=== PATIENT | female | born 1965 | race Caucasian/White ===

== ENCOUNTER → 2017-07-11 | Outpatient (CLI) | payer MEDICAID ==
[2013-12-04 10:12] VITALS: BMI 19.9
[~2017-07-11] MED LIST: ACE500 PO; ADV250/50 INH; ALBUTEROL INHAL; AMIT100T53 PO; AMOX-362 PO; ANTI15DR29 OT; ARIP5TAB28 PO; AUG500 PO; AUGMENTIN; AZI250 PO; BACDS PO; CARB-83 PO; CEP500 PO; CEPH-13 PO; CLAD PO; CLON-308 PO; CLON-388 PO; CLON1 PO; DEXT10SY2 PO; EAR DROPS; ESTR42.5 VG; FERR325T3 PO; FLUC150T40 PO; FLUO-177 PO; FLUT16SP20 NS; GAB100 PO; HYDR-4309 PO; HYDR25CA83 PO; LEV500 PO; LEVO250T37 PO; LOR10 PO; LOR5 PO; LOR5/325 PO; LOR75 PO; LORA10TA2 PO; META800T18 PO; METH-632 PO; METH20CP PO; METH40TA13 PO; METH4TAB57 PO; MIRT15TA6 PO; MOMR NS; MORS15 PO; NALT50TA15 PO; NAS20R NS; NIC21T TD; OND4 PO; ONDA4TAB PO; OXY10 PO; OXYC-823 PO; OXYC-865 PO; OXYC5TAB38 PO; OXYC5TAB65 PO; PANT40TA13 PO; PEN250 PO; PER PO; PRE20 PO; PROM25S PR; QUET25TA30 PO; RIZA10 PO; RIZA10TA22 PO; RIZA5TAB13 PO; SUDAFED; THI100 PO; TIZ4 PO; TIZA2CAP3 PO; TIZA4CAP6 PO; TOPI50TA92 PO; TRA50 PO; TYLENOL; VICODIN PO; [UNRECOGNIZED DRUG - CODE] TOP
== END ==
LOC: LAB 11:14
PROVIDERS: ATTEND Obstetrics & Gynecology
DX: R19.7 Diarrhea, unspecified (principal)
CPT/HCPCS: 87177

== ENCOUNTER → 2017-10-31 | Outpatient (CLI) | payer MEDICAID ==
[2013-12-04 10:12] VITALS: BMI 19.9
[~2017-10-31] MED LIST changes: +ATOR20TA65 PO; +BARIUM SULFATE 176 GM BTL PO ONE; +BARIUM SULFATE 340 GM POWD ONE; -CLON-308 PO; +CLON-335 PO; +IOPAMIDOL 76% 100 ML INFUS BTL 100 ML ONE; +LIDOCAINE/SOD BICARB 8.4% SYR ID ONE; +METF-411 PO; +METH20TA37 PO; +PANT40TA65 PO; +TRAZ100T31 PO; +TRAZ50TA34 PO
--- NOTE | 2017-10-31 10:04 | RADIOLOGY IMAGING REPORT ---
FACILITY: [facility] [place] PATIENT NAME: Ayse Treviño : 1965 MR: [id number] V: [id number] EXAM DATE: ORDERING PHYSICIAN: PIYUSH DUVALL TECHNOLOGIST: Location: [facility] Patient: Ayse Treviño : 1965 Visit/Account:[id number] Date of Sevice: 10/31/2017 ABDOMEN/PELVIS WITH CONTRAST HISTORY: Nausea, epigastric pain TECHNIQUE: Following administration of IV contrast contiguous axial images acquired through the abdom en/pelvis. Coronal and sagittal reformatting also performed. Dose Lowering Technique One of the following dose optimization techniques was utilized in the performance of this exam: Autom ated exposure control; adjustment of the mA and/or kV according to the patient's size; or use of an i terative reconstruction technique. Specific details can be referenced in the facility's radiology C T exam operational policy. CONTRAST: 75 mL Isovue-370 COMPARISON: CT abdomen pelvis October 22, 2013 FINDINGS: Visualized lung bases: Negative. Hepatobiliary: There are postsurgical changes from a cholecystectomy. A small capsular calcificatio ns seen along the medial dome of the liver that appears stable Spleen: Negative. Adrenals: Negative. Pancreas: Negative. Kidneys ureters or bladder: Negative. Genitalia: Postsurgical changes from hysterectomy GI: Again noted are postoperative changes from a gastric bypass. The previously noted 3.2 x 2.8 x 3 .6 cm hypoattenuating structure immediately adjacent to the gastric clips is slightly increased in si ze now measuring 4.2 x 2.8 x 4 cm. This likely postoperative and does not appear to represent an abs cess. There is no internal air bubbles in the wall appears thin . The distal wall the esophagus appears mildly thickened Vessels/spaces/nodes: Very mild vascular calcifications.. Bones/soft tissues: There are postsurgical changes from ventral hernia repair with mesh placement that appears similar to the prior study Additional findings: None pertinent. IMPRESSION: There are postsurgical changes from a cholecystectomy, hysterectomy ventral hernia repair with mesh a nd gastric bypass. There is a 4.2 x 2.8 x 4 cm hypoattenuating structure immediately adjacent to the gastric clips sligh tly increased in size when compared the prior study and is likely postoperative in nature. This does not appear to represent an abscess Distal esophagus appears mildly thickened. Clinical correlation needed Report Dictated By: Sadie Apodaca MD at 10/31/2017 9:44 AM Report E-Signed By: Sadie Apodaca MD at 10/31/2017 10:00 AM PAMELAN:[id number]
--- NOTE | 2017-10-31 16:03 | RADIOLOGY IMAGING REPORT ---
FACILITY: [facility] [place] PATIENT NAME: Ayse Treviño : 1965 MR: [id number] V: [id number] EXAM DATE: ORDERING PHYSICIAN: PIYUSH DUVALL TECHNOLOGIST: Location: [facility] Patient: Ayse Treviño : 1965 Visit/Account:[id number] Date of Sevice: 10/31/2017 Exam type: UPPER GI W/SMALL BOWEL SERIES History: Diarrhea, weight gain, gastric bypass surgery 17 years ago Comparison: None. Findings: Double contrast upper GI series and small bowel follow-through was performed with thick and thin lesley um. The patient did not receive air-contrast as she was instructed not to drink effervescent or carb onated liquids. There is a small hiatal hernia although no evidence of esophageal narrowing or mucosal erosion. There are postsurgical changes from a Jasmin-en-Y gastric bypass. The anastomosis from the gastric gracy ch into the Jasmin limb was widely patent. Small amount of barium refluxed into the jejunal stump. Th ere is no evidence of an anastomotic leak or stricture. The barium did not reflux into the biliopanc reatic limb lowering to the isolated stomach. The barium passed rapidly into the right-sided the col on reaching the right-sided colon on the 15 minute image.. There is irregular thickening of the small bowel folds in the proximal portion of the Jasmin limb The possibly dose area product was 1128.3 micro-Aleman per meter squared IMPRESSION: 1. Small hiatal hernia although no evidence of esophageal narrowing or mucosal erosion Postsurgical changes from a Jasmin-en-Y gastric bypass. The gastric anastomosis is widely patent witho ut evidence of stricture or anastomotic leak. Barium did flow rapidly to the right-sided the colon which was visualized on the 15 minute image. There is irregular thickening of the small bowel folds in the proximal portion of the Jasmin limb diffe rential diagnosis for this finding would include hypoalbuminemia, infection, inflammatory change. Report Dictated By: Sadie Apodaca MD at 10/31/2017 3:22 PM Report E-Signed By: Sadie Apodaca MD at 10/31/2017 3:58 PM WSN:[id number]
== END ==
LOC: CT 02:23
PROVIDERS: ATTEND Surgery
DX: K44.9 Diaphragmatic hernia without obstruction or gangrene (principal)
CPT/HCPCS: 74177; 74245; Q9967

== ENCOUNTER 2017-11-07 00:37 | Day surgery (SDC) | payer MEDICAID ==
[2013-12-04 10:12] VITALS: Ht 167.6 cm; Wt 76.7 kg
[~2017-11-07] VITALS: Ht 167.6 cm; Wt 76.7 kg
[~2017-11-07 00:37] MED LIST changes: -BARIUM SULFATE 176 GM BTL PO ONE; -BARIUM SULFATE 340 GM POWD ONE; -IOPAMIDOL 76% 100 ML INFUS BTL 100 ML ONE; -LIDOCAINE/SOD BICARB 8.4% SYR ID ONE
[2017-11-07] MEDS ORDERED: PROPOFOL EMUL(*) 10MG/ML 20 ML 20 ML ONE ×4 (07:09→10:32)
[2017-11-07 07:48] LABS: PLATELET COUNT, AUTOMATED 407 K/uL (150-450)
[2017-11-07] MEDS ORDERED: LIDOCAINE/SOD BICARB 8.4% SYR ID ONE (07:55)
[2017-11-07] MEDS ORDERED: NORMOSOL R SOLN(*) 1000 ML BAG 1,000 ML IV PRN (07:55)
[2017-11-07 07:58] VITALS: BP 125/83
[2017-11-07 10:40] VITALS: BP 116/77
[2017-11-07 10:45] VITALS: BP 118/74
--- NOTE | 2017-11-07 10:57 | Short(Outpt) Discharge Summary ---
Discharge Summary Reason for Hosp/Final Diag: (1) Epigastric abdominal pain Status: Chronic Hospital Course & Plan: EGD with biopsies and colonoscopy with biopsies and polypectomy x4 completed without problems. (2) Diarrhea Status: Chronic Departure Discharge to: Home, Self Care Discharge Instructions Home Meds Active Scripts Pantoprazole Sodium (PANTOPRAZOLE SODIUM) 40 Mg Tablet.dr, 1 TAB PO DAILY, #30 TAB 0 Refills Take one tablet 1st thing every morning and wait 30 minutes before eating Prov:PIYUSH DUVALL MD 10/16/17 Reported Medications Methylphenidate Hcl (METHYLPHENIDATE HCL) 20 Mg Tablet, 20 MG PO BID for ADD 10/30/17 Trazodone Hcl (TRAZODONE HCL) 100 Mg Tablet, 200 MG PO QHS, TAB 10/30/17 Tizanidine Hcl (TIZANIDINE HCL) 2 Mg Capsule, 4 MG PO TID, CAPSULE 10/30/17 Atorvastatin Calcium (ATORVASTATIN CALCIUM) 20 Mg Tablet, 1 TAB PO QDAY, TAB 08/29/17 Ondansetron (ZOFRAN ODT) 4 Mg Tab.rapdis, 4 MG PO Q12H Y for NAUSEA/VOMITING, TAB.CHIVO 08/29/17 Metformin Hcl (METFORMIN HCL) 500 Mg Tablet, 1 TAB PO BID, TAB 08/29/17 Fluoxetine Hcl (FLUOXETINE HCL) 20 Mg Capsule, 60 MG PO QDAY, CAPSULE 01/13/17 Clonazepam (CLONAZEPAM) 0.5 Mg Tab.rapdis, 0.5 MG PO BID, TAB 01/13/17 Follow up Referrals: General Surgery - 12/03/17 @ Surgery, General with Piyush Duvall Md You have a follow up appointment scheduled with Dr. Duvall on 11/24/17, at 4:00pm. Diet: Regular Activity: As Tolerated Problem Qualifiers (1) Diarrhea: Diarrhea type: unspecified type Qualified Codes: R19.7 - Diarrhea, unspecified PIYUSH DUVALL MD Nov 07, 2017 10:57
[2017-11-07 11:00] VITALS: BP 129/72
[2017-11-07 11:15] VITALS: BP 122/80
[2017-11-07 11:17] VITALS: BP 113/71
== END 2017-11-07 11:40 | disposition home or self-care (01) ==
LOC: OR 00:37
PROVIDERS: ATTEND Surgery
DX: K22.70 Barrett's esophagus without dysplasia (principal); D12.3 Benign neoplasm of transverse colon; K63.5 Polyp of colon; K62.1 Rectal polyp; F41.8 Other specified anxiety disorders; G47.33 Obstructive sleep apnea (adult) (pediatric); E11.9 Type 2 diabetes mellitus without complications; M79.7 Fibromyalgia; F17.210 Nicotine dependence, cigarettes, uncomplicated; F12.90 Cannabis use, unspecified, uncomplicated; Z90.49 Acquired absence of other specified parts of digestive tract; Z98.84 Bariatric surgery status
CPT/HCPCS: 00811; 36415; 36416; 43239; 45380; 45385; 82248; 82948; 83516; 85025; 85651; 86140; 87077; 88305; J2704; 82040; 82247; 82310; 82374; 82435; 82565; 82947; 84075; 84132; 84155; 84295; 84450; 84460; 84520

== ENCOUNTER 2018-01-03 14:06 | Emergency (ER) | payer MEDICAID ==
[2013-12-04 10:12] VITALS: Wt 79.4 kg
[~2018-01-03 14:06] MED LIST changes: -HYDR-4309 PO; +HYDR-653 PO; -METF-411 PO; +METF-450 PO
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
[2018-01-03] MEDS ORDERED: diphenhydrAMINE 50 MG/ML VIAL IVP ONE (14:25)
[2018-01-03] MEDS ORDERED: PROMETHAZINE 25 MG/ML 1 ML AMP IVP ONE (14:25)
[2018-01-03] MEDS ORDERED: DEXAMETHASONE SOD PHOS 10MG/ML IVP ONE (14:25)
[2018-01-03] MEDS ORDERED: KETOROLAC 30 MG/ML VIAL IVP ONE (14:25)
[2018-01-03] MEDS ORDERED: NS(*) 0.9% 1000 ML BAG 1,000 ML IV ONE (14:25)
[2018-01-03] MEDS ORDERED: MORPHINE 4 MG/ML SDV IVP ONE (15:25)
[2018-01-03 15:30] VITALS: BP 108/72
[2018-01-08] MEDS ORDERED: PANT40TA65 PO (15:08)
== END 2018-01-03 16:15 | disposition home or self-care (01) ==
LOC: ER 14:09
DX: G43.919 Migraine, unspecified, intractable, without status migrainosus (principal)
CPT/HCPCS: 96361; 96374; 96375; 99284; J1100; J1200; J1885; J2270; J2550; J7030

== ENCOUNTER → 2018-02-21 | Outpatient (CLI) | payer MEDICAID ==
[2013-12-04 10:12] VITALS: BMI 19.9
--- NOTE | 2018-02-21 13:02 | RADIOLOGY IMAGING REPORT ---
FACILITY: [facility] PATIENT NAME: Ayse Treviño : 1965 MR: [id number] V: [id number] EXAM DATE: ORDERING PHYSICIAN: ANDRE SNELL TECHNOLOGIST: Location: [facility] Patient: Ayse Treviño : 1965 Visit/Account:[id number] Date of Sevice: 02/21/2018 T SPINE W/O CONTRAST COMPARISON: None Additional pertinent history: Thoracic pain Technique: Multiplanar multisequence thoracic spine MRI was performed without gadolinium enhancement. FINDINGS: Vertebral body height and alignment: Negative Marrow signal: Negative Vertebral bodies: Negative Thoracic spinal cord signal: Negative Disc spaces: Circumferential disc bulging with facet hypertrophic changes at T10-T11. Canal and neural foramina: Negative Surrounding soft tissues: Negative IMPRESSION: 1. Spondylitic change involving the lower thoracic spine. 2. No significant canal or neural foraminal narrowing. Report Dictated By: Bran Escalante MD at 02/21/2018 12:55 PM Report E-Signed By: Bran Escalante MD at 02/21/2018 12:57 PM WSN:[email or web address]
== END ==
LOC: MRI 00:35
PROVIDERS: ATTEND Nurse Practitioner
DX: M47.894 Other spondylosis, thoracic region (principal)
CPT/HCPCS: 72146